=== PATIENT | male | born 1980 | race Caucasian/White ===

== ENCOUNTER → 2022-02-23 08:00 | Outpatient (CLI) | payer OTHER, SELFPAY ==
[2022-02-23 09:49] LABS: Alanine Aminotransferase 36 IU/L (<50); Albumin 4.3 g/dL (3.5-5.0); Albumin Globulin Ratio 1.5 (1.0-2.8); Alkaline Phosphatase 76 U/L (38-126); Aspartate Aminotransferase 31 IU/L (17-59); BUN Creatinine Ratio 30.8 (6-22); Bilirubin Total 0.5 mg/dL (0.2-1.3); Blood Urea Nitrogen 24 mg/dL (9-20); Calcium 8.8 mg/dL (8.4-10.2); Carbon Dioxide 34 mmol/L (22-32); Chloride 105 mmol/L (98-107); Cholesterol 149 mg/dL (140-199); Estimated Glomerular Filt Rate > 60 mL/min (>60); Globulin 2.8 g/dL (1.7-4.1); Glucose 88 mg/dL (70-100); HDL Cholesterol 57 mg/dL (40-60); HEMOLYSIS < 15 (0-50); LDL Cholesterol Calculated 81 mg/dL (<100); Potassium 4.2 mmol/L (3.4-5.1); Sodium 140 mmol/L (137-145); Total Protein 7.1 g/dL (6.3-8.2); Triglycerides 57 mg/dL (35-150)
[2022-02-24 08:32] LABS: Hepatitis B Surf Ab Qualitativ Reactive (.)
== END ==
PROVIDERS: PCP Internal Medicine; Referring Provider Internal Medicine; Visit Provider Internal Medicine
DX: K75.9 Inflammatory liver disease, unspecified (principal); Z13.220 Encounter for screening for lipoid disorders; Z13.6 Encounter for screening for cardiovascular disorders
CPT/HCPCS: 36415; 80053; 80061; 86706

== ENCOUNTER → 2022-06-08 12:28 | Outpatient (CLI) | payer OTHER, SELFPAY ==
--- NOTE | 2022-06-08 12:48 | DI.ECHO.S_ITS ---
+ + :Name: CARROLL VEGA Study Date: 06/08/2022 Height: 76 in : :[facility] ReadingLocation: Weight: 185 lb : : Gender: Male BSA: 2.1 m2 : :: 1980 Age: 41 yrs BP: 146/76 mmHg: :Reason For Study: Aortic, Biscupid Valve : :Ordering Physician: BRAD, : :JOSEFINA Diamond Performed By: Jamal Chavez : :Referring: JOSEFINA SALINAS : + + Interpretation Summary The patient was in normal sinus rhythm during the exam. Hypertensive during exam The left ventricle is normal in size and wall thickness. Left ventricular systolic function is normal. The ejection fraction is estimated to be 55-60%. Diastolic parameters suggest probable normal left ventricular diastolic function and normal filling pressures. The right ventricle is normal in size and function. The aortic valve is trileaflet. No prior study for comparison. Procedure: A two-dimensional transthoracic echocardiogram with color flow and Doppler was performed. The study quality was technically adequate. There is no prior echocardiogram noted for this patient. The patient was in normal sinus rhythm during the exam. Hypertensive during exam. Left Ventricle: The left ventricle is normal in size and wall thickness. Left ventricular systolic function is normal. The ejection fraction is estimated to be 55-60%. There are no focal wall motion abnormalities. Diastolic parameters suggest probable normal left ventricular diastolic function and normal filling pressures. Right Ventricle: The right ventricle is normal in size and function. Atria: Both atria are normal in size. The interatrial septum grossly appears intact with no obvious evidence for an atrial septal defect. Mitral Valve: The mitral valve is normal in structure and function. There is no mitral regurgitation noted. Aortic Valve: The aortic valve is normal in structure and function. The aortic valve is trileaflet. No aortic regurgitation is present. Tricuspid Valve: The tricuspid valve is normal in structure and function. No tricuspid regurgitation. Pulmonary artery pressures cannot be estimated because of the lack of a measurable TR jet velocity. Pulmonic Valve: The pulmonic valve is normal in structure and function. There is trace pulmonic regurgitation. Great Vessels: The aortic root is normal size. The dimensions of the ascending aorta are normal. The IVC is of normal diameter and collapses greater than 50% with a sniff. This suggests a low right atrial pressure of 3 mm Hg. Pericardium/ Pleura There is no pericardial effusion. There is no pleural effusion. MMode/2D Measurements & Calculations LVIDd: 5.2 cm LVOT diam: 2.4 cm LVIDs: 3.6 cm Ao root diam: 3.2 cm FS: 30.0 % asc Aorta Diam: 3.0 cm IVSd: 1.0 cm LVPWd: 0.93 cm LV bedoya. diameter/BSA (cm/m^2): 2.4 LV sys. diameter/BSA (cm/m^2): 1.7 LA A2 area: 17.7 cm2 RA long axis: 4.2 cm LA A4 area: 18.3 cm2 RA area: 13.3 cm2 LA length (vol): 5.7 cm RA vol: 36.1 ml LA vol: 47.8 ml RA : 16.8 ml/m2 LA vol index: 22.3 ml/m2 TAPSE: 2.8 cm Doppler Measurements & Calculations Ao V2 max: 139.2 cm/sec LVOT Max Parminder: 128.4 cm/sec Ao V2 mean: 97.3 cm/sec LV V1 max P.6 mmHg Ao max P.8 mmHg LV V1 VTI: 23.1 cm Ao mean P.2 mmHg MANASA(I,D): 4.0 cm2 Ao V2 VTI: 26.7 cm MANASA(V,D): 4.2 cm2 sev ratio: 0.87 MANASA indexed to BSA (cm^2/m^2): 1.9 MV E max parminder: 97.7 cm/sec SV(LVOT): 106.5 ml MV A max parminder: 72.4 cm/sec MV E/A: 1.3 Med Peak E' Parminder: 16.0 cm/sec E/E' med: 6.1 Lat Peak E' Parminder: 19.3 cm/sec E/E' lat: 5.1 E/e' average: 5.6 MV dec time: 0.28 sec Reading Physician:MARISSA
== END ==
PROVIDERS: PCP Internal Medicine; Referring Provider Internal Medicine; Visit Provider Internal Medicine
DX: Q23.1 Congenital insufficiency of aortic valve (principal)
CPT/HCPCS: 93306

== ENCOUNTER → 2023-05-31 09:50 | Outpatient (CLI) | payer OTHER, SELFPAY ==
[2023-05-31 10:30] LABS: Semen Sperm Prescence Post-Vas Absent (ABSENT)
== END ==
PROVIDERS: PCP Internal Medicine; Referring Provider Specialist; Visit Provider Specialist
DX: Z98.52 Vasectomy status (principal)
CPT/HCPCS: 89321